=== PATIENT | female | born 1950 | race Caucasian/White ===

== ENCOUNTER 2019-12-05 13:09 | Outpatient (CLI) | payer MEDICARE, SELFPAY ==
--- NOTE | 2019-12-05 13:24 | XR_ITS ---
WS: [id number] CHEST 2 VIEWS HISTORY: SYMPTOMS OF PNEUMONIA, OTHER ABNORMALITIES OF BREATHING COMPARISON: 08/04/2012 Lungs: Clear with no abnormality. No pleural effusion or pneumothorax. Cardiac size: Normal. Mediastinum/Aorta: Mild ectasia aorta. Bones: Prior fusion hardware in the cervical region. XR/XR chest 2V* [id number] IMPRESSION: Stable chest with no acute cardiopulmonary disease.
== END 2019-12-05 13:10 | disposition home or self-care (01) ==
LOC: RADWPI 13:19
PROVIDERS: Family Provider Nurse Practitioner Family; PCP Nurse Practitioner; Visit Provider Nurse Practitioner Family
DX: I77.819 Aortic ectasia, unspecified site (principal); R06.89 Other abnormalities of breathing; Z98.1 Arthrodesis status
CPT/HCPCS: 71046

== ENCOUNTER 2025-01-06 08:45 | Emergency (ER) | payer MEDICARE, SELFPAY ==
[2025-01-06 08:50] VITALS: BP 158/73; PULSE 62; RESP 16; TEMP 36.6; O2SAT 100; BMI 21.2
--- NOTE | 2025-01-06 09:03 | XR_ITS ---
WS: [id number] Exam: [place] [id number] Date/Time of Exam: 01/06/2025 9:03 AM Reason For Exam: fall/injury There is an impacted comminuted fracture of the humeral neck with some displacement. The fracture extends into the greater tuberosity of the humeral head. No dislocation. The remainder of the humerus is intact. IMPRESSION1. Impacted comminuted displaced humeral neck fracture. Fracture lines also extend into the greater tuberosity.
--- NOTE | 2025-01-06 09:03 | CT_ITS ---
WS: [id number] CT CERVICAL TRAUMA TECHNIQUE: Noncontrast CT of the cervical spine with coronal and sagittal reformatted images. CLINICAL INFORMATION: fall COMPARISON: None. DLP: 1107.[address] scans at [facility] use at least one of these dose optimization techniques: automated exposure control; mA and/or kV adjustment per patient size (includes targeted exams where dose is matched to clinical indication); or iterative reconstruction. FINDINGS: Straightening of the normal cervical lordosis. Apparent postoperative changes ACDF C5-C7. LEFT posterior element fusion. Anterior hypertrophic changes. Pannus formation C1-2. Dens appears intact. C1 ring appears intact. No acute fractures Small calcified RIGHT thyroid nodule CT/CT cervical spin wo con* [id number] IMPRESSION: No evidence of acute fracture or dislocation.
--- NOTE | 2025-01-06 09:03 | CT_ITS ---
WS: [id number] CT THORACIC SPINE TECHNIQUE: Noncontrast CT of the thoracic spine with coronal and sagittal reformatted images. CLINICAL INFORMATION: fall/trauma COMPARISON: None. DLP: 576.[address] scans at [facility] use at least one of these dose optimization techniques: automated exposure control; mA and/or kV adjustment per patient size (includes targeted exams where dose is matched to clinical indication); or iterative reconstruction. FINDINGS: Mild thoracic curve. Mild thoracic kyphosis. Hypertrophic changes thoracic spine. No acute fractures. Moderate facet arthropathy lower thoracic spine. No acute thoracic spine findings CT/CT thoracic spin wo con* [id number] IMPRESSION: No acute fractures
--- NOTE | 2025-01-06 09:03 | CT_ITS ---
WS: [id number] CT HEAD TECHNIQUE: Noncontrast CT of the head obtained from the skullbase to the vertex. CLINICAL INFORMATION: trauma/fall COMPARISON: None. DLP: 1107.[address] scans at [facility] use at least one of these dose optimization techniques: automated exposure control; mA and/or kV adjustment per patient size (includes targeted exams where dose is matched to clinical indication); or iterative reconstruction. FINDINGS: No evidence of intracranial hemorrhage or mass effect. Ventricular system and basal cisterns are patent. Mild small vessel changes with moderate parenchymal volume loss. No extra-axial fluid collections. No evidence of mass or mass effect. Vascular calcification. Paranasal sinuses and mastoid air cells are well aerated. .Normal visualized soft tissues. CT/CT head wo con* [id number] IMPRESSION: 1. No evidence of intracranial hemorrhage or mass effect. 2. No acute intracranial findings.
--- NOTE | 2025-01-06 09:03 | XR_ITS ---
WS: [id number] Exam: XR shoulder LT min 2V* [id number] Date/Time of Exam: 01/06/2025 9:03 AM Reason For Exam: fall/trauma There is an impacted comminuted fracture of the surgical neck of the humerus. The fracture extends into the humeral head. No other fractures of the shoulder are identified. 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 XR/XR shoulder LT min 2V* [id number] IMPRESSION: 1. Impacted displaced humeral neck fracture. The fracture also appears to exten d into the lateral aspect of the humeral head.
--- NOTE | 2025-01-06 09:04 | W.ED.FALL ---
HPI - Fall General: Chief Complaint: Trauma Stated Complaint: fall Time Seen by Provider: 01/06/25 08:46 Source: patient Mode of arrival: EMS Limitations: no limitations History of Present Illness: Patient is a very nice 74-year-old female presents to ED today for evaluation following a fall. 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 Either way she states she fell backwards and landed onto her left shoulder which seems to be her main source of discomfort. She is also complaining of neck pain and does arrive via EMS in a c-collar. She states she was not head butted or trampled by the cow. She is not having any chest pain, abdominal pain, hip or pelvis pain. She is not sure if she struck her head. There was no LOC. She is not on anticoagulation. She has no open wounds or abrasions. Patient was given pain medication by EMS and currently reports that her pain is controlled. MD complaint: fall Onset (ago): hour(s) Fall from: standing Place fall occurred: other (outdoors) Loss of consciousness: None Prolonged down time: no Symptoms prior to fall: none Context: tripped/slipped (pushed) Location of injury: neck Location of injury - extremities: Left: shoulder Severity: moderate Associated symptoms-after fall: Reports neck pain; Denies abdominal pain, chest pain, headache(s), hematuria or lightheadedness Related Data Home Medications ?Medication ?Instructions ?Recorded ?Confirmed alendronate 70 mg tablet 70 mg PO Q7D 01/06/25 01/06/25 atorvastatin 40 mg tablet 40 mg PO DAILY 01/06/25 01/06/25 budesonide 3 mg 3 mg PO BID 01/06/25 01/06/25 capsule,delayed,extended release diazepam 5 mg tablet 5 mg PO BEDTIME PRN Sleep 01/06/25 01/06/25 duloxetine 30 mg capsule,delayed 30 mg PO DAILY 01/06/25 01/06/25 release empagliflozin 10 mg tablet 10 mg PO DAILY 01/06/25 01/06/25 (Jardiance) glimepiride 1 mg tablet 1 mg PO DAILY 01/06/25 01/06/25 insulin lispro 100 unit/mL See Rx Instructions .Route .COMPLEX 01/06/25 01/06/25 subcutaneous pen metformin 500 mg tablet,extended 1,000 mg PO DAILY 01/06/25 01/06/25 release 24 hr primidone 50 mg tablet 50 mg PO BID 01/06/25 01/06/25 sitagliptin phosphate 100 mg 100 mg PO DAILY 01/06/25 01/06/25 tablet (Januvia) Previous Rx's ?Medication ?Instructions ?Recorded hydrocodone 7.5 mg-acetaminophen 1 - 2 tab PO .q 4-6 #20 tabs 01/06/25 325 mg tablet Allergies Allergy/AdvReac Type Severity Reaction Status Date / Time ampicillin Allergy Unknown Verified 01/06/25 10:32 chloramphenicol Allergy Unknown Verified 01/06/25 10:31 ciprofloxacin Allergy Unknown Verified 01/06/25 10:31 gabapentin Allergy Unknown Verified 01/06/25 10:31 Penicillins Allergy Unknown Verified 01/06/25 10:31 prochlorperazine Allergy Unknown Verified 01/06/25 10:31 pseudoephedrine Allergy Unknown Verified 01/06/25 10:31 Sulfa (Sulfonamide Allergy Unknown Verified 01/06/25 10:31 Antibiotics) Review of Systems Eyes: Denies: change in vision, blurry vision, photophobia, eye discharge, floaters or seeing flashes ENMT: Denies: throat pain, odynophagia, ear or mastoid pain, ear discharge, nasal discharge, epistaxis or sinus pain Card: Denies: chest pain, palpitations, lightheadedness, syncope or pre-syncope Resp: Denies: dyspnea or pain on inspiration GI: Denies: abdominal pain : Denies: flank pain or hematuria Musc: Reports: neck pain, back pain and joint pain (L shoulder); Denies: extremity pain Neuro: Denies: headache(s), numbness in extremities, weakness in extremities, sensory changes or dizziness Physical Exam Const: COMMON NORMALS: no acute distress, average body habitus, patient oriented x3, no limitations, healthy appearing, alert and well nourished GENERAL APPEARANCE: cooperative ORIENTATION/CONSCIOUSNESS: Yes awake, Yes oriented to person, Yes oriented to place and Yes oriented to time HENMT: COMMON NORMALS: normocephalic, atraumatic and TM's normal bilaterally HEAD & SCALP: normal to inspection, normocephalic and atraumatic; no Douglas's sign, no hematoma and no raccoon eyes FACE & SINUS: normal facial exam TYMPANIC MEMBRANE: TM's normal bilaterally MOUTH: other (no intraoral injuries noted) Eye: COMMON NORMALS: Equal, round and reactive pupils present and EOMs intact bilaterally GENERAL EYE: appearance normal, both eyes and all related structures and normal light reflex PUPIL: Yes Equal, round and reactive pupils present DIRECT OPHTHALMOSCOPY: Yes normal light reflex Neck/C-Spine: GENERAL: Yes normal visual inspection CERVICAL SPINE: Yes Cervical spine tenderness and No step off deformity OTHER: c-collar present from EMS; this was not removed for ROM testing Chest: COMMONS NORMALS: normal inspection of the chest and normal palpation of entire chest wall OTHER: denies rib pain, lung sounds normal Resp: COMMON NORMALS: normal respiratory effort and clear to auscultation bilaterally AUSCULTATION: clear to auscultation bilaterally Cardio: COMMON NORMALS: regular rate and regular rhythm RATE: regular rate RHYTHM: regular rhythm GI: COMMON NORMALS: Normal to inspection, nondistended, normoactive bowel sounds present, Soft to palpation, non-tender, No hepatosplenomegaly present and no masses INSPECTION: Yes normal to inspection and No abdominal wall ecchymosis AUSCULTATION: Yes normoactive bowel sounds PALPATION: Yes Soft to palpation and Yes No hepatosplenomegaly present Back/Pelvis: COMMON NORMALS: thoracic and lumbar spine normal to inspection and straight leg raise negative bilaterally THORACIC SPINE/UPPER BACK: Yes thoracic spinal tenderness LUMBAR SPINE/LOWER BACK: No lumbar spinal tenderness and Yes straight leg raise negative bilaterally PELVIS: Yes buttocks normal and No sciatic notch tenderness SACROILIAC JOINTS: Yes SI joints normal SACRUM: no tenderness COCCYX: no tenderness Extremity: GENERAL: Yes normal exam except as noted LEFT UPPER EXTREMITY: Yes shoulder joint (deformity to L shoulder) Left shoulder joint: Yes ROM (no ROM due to pain) and Yes neurovascular exam (normal) Neuro: THAI COMA SCALE: document [facility] findings Thai coma scale eye opening: Spontaneous Thai coma scale verbal response: Orientated [place] coma scale motor response: Obey commands [place] coma scale total score: 15 COMMON NORMALS: patient oriented x3, CN's II-XII intact bilaterally, moves all extremities, no focal motor deficits and no sensory deficits noted SENSORIUM/ORIENTATION: Yes alert, Yes oriented to person, Yes oriented to place and Yes oriented to time SPEECH: speech normal GAIT: Yes Normal gait present Skin: COMMON NORMALS: no rashes or lesions noted GENERAL SKIN EXAM: no rashes or lesions noted TRAUMA: no lacerations or abrasions Course Consultations: Consultation #1: Dr. Smith-reviewed shoulder films-recommending sling and follow up in office Vital Signs: Vital signs: Vital Signs Temperature 97.9 F 01/06/25 08:50 Pulse Rate 62 01/06/25 11:24 Respiratory Rate 18 01/06/25 10:55 Blood Pressure 152/89 01/06/25 11:24 Pulse Oximetry 99 01/06/25 11:24 Oxygen Delivery Me thod Room Air 01/06/25 10:55 MDM - Fall Medical Decision Making Patient is a 74-year-old female here following a fall. Her main concern was her left shoulder. She does have an impacted/comminuted/displaced humeral neck fracture. This was discussed with Dr. Smith who recommends sling and follow-up in office. CT scans of her head, cervical spine, and thoracic spine were obtained and unremarkable. Strict return to ED precautions discussed. Patient was ambulatory here in the emergency department without difficulty or assistance. Medical Records I reviewed the patient's medical records. Lab Data I reviewed the patient's lab results. 01/06/25 09:16 01/06/25 09:16 Radiology Impressions Cervical Spine CT 01/06/25 09:03 IMPRESSION: No evidence of acute fracture or dislocation. Head CT 01/06/25 09:03 IMPRESSION: 1. No evidence of intracranial hemorrhage or mass effect. 2. No acute intracranial findings. Shoulder X-Ray 01/06/25 09:03 IMPRESSION: 1. Impacted displaced humeral neck fracture. The fracture also appears to extend into the lateral aspect of the humeral head. Thoracic Spine CT 01/06/25 09:03 IMPRESSION: No acute fractures Chest X-Ray 01/06/25 09:42 IMPRESSION: 1. No acute cardiopulmonary finding. Laboratory Results WBC 7.88 10^3/uL (3.29-11.43) 01/06/25 09:16 RBC 4.45 10^6/uL (3.85-5.65) 01/06/25 09:16 Hgb 13.70 g/dL (11.27-16.99) 01/06/25 09:16 Hct 43.1 % (36-47) 01/06/25 09:16 MCV 96.9 fl (85-98) 01/06/25 09:16 MCH 30.8 pg (27-33) 01/06/25 09:16 MCHC 31.8 g/dL (30-55) 01/06/25 09:16 RDW 14.7 % (12.1-15.1) 01/06/25 09:16 Plt Count 195 10^3/cmm (157-399) 01/06/25 09:16 MPV 10.9 fL (7.4-10.4) H 01/06/25 09:16 Neut % (Auto) 69.6 % 01/06/25 09:16 Lymph % (Auto) 18.8 % 01/06/25 09:16 Fannin % (Auto) 9.5 % 01/06/25 09:16 Eos % (Auto) 1.4 % 01/06/25 09:16 Baso % (Auto) 0.3 % 01/06/25 09:16 Neut # (Auto) 5.49 10^3/uL (1.8-7.7) 01/06/25 09:16 Lymph # (Auto) 1.5 10^3/uL (0.8-4.8) 01/06/25 09:16 Fannin # (Auto) 0.8 10^3/uL (0.2-0.9) 01/06/25 09:16 Eos # (Auto) 0.1 10^3/uL (0.0-0.8) 01/06/25 09:16 Baso # (Auto) 0.0 10^3/uL (0.0-0.1) 01/06/25 09:16 Nucleated RBC % (auto) 0 % 01/06/25 09:16 Nucleated RBCs # 0.0 /100WBC 01/06/25 09:16 Sodium 141 mmol/L (136-145) 01/06/25 09:16 Potassium 4.1 mmol/L (3.5-5.1) 01/06/25 09:16 Chloride 103 mmol/L (98-107) 01/06/25 09:16 Carbon Dioxide 23 mmol/L (22-29) 01/06/25 09:16 Anion Gap 19.1 (5-19) H 01/06/25 09:16 BUN 15 mg/dL (8-23) 01/06/25 09:16 Creatinine 0.8 mg/dL (0.5-0.9) 01/06/25 09:16 GFR Calculation Not Reportable 01/06/25 09:16 Glucose 138 mg/dL (65-115) H 01/06/25 09:16 POC Glucose 108 mg/dL (70-110) 01/06/25 10:18 Calculated Osmolality 295 mOsm/kg (285-295) 01/06/25 09:16 Calcium 9.2 mg/dL (8.5-10.5) 01/06/25 09:16 Total Bilirubin 0.5 mg/dL (0.15-1.2) 01/06/25 09:16 AST 28 U/L (0-32) 01/06/25 09:16 ALT 13 U/L (0-33) 01/06/25 09:16 Alkaline Phosphatase 97 U/L (35-105) 01/06/25 09:16 Total Protein 7.3 g/dL (6.6-8.7) 01/06/25 09:16 Albumin 4.4 g/dL (3.5-5.2) 01/06/25 09:16 Globulin 2.9 g/dL (1.3-4.6) 01/06/25 09:16 All radiology interpretation(s) finalized by discharge Discharge Plan Discharge Patient Disposition: Home Clinical Impression: Fall Qualifiers: Encounter type: initial encounter Qualified Code(s): W19.XXXA - Unspecified fall, initial encounter Fracture of neck of left humerus Qualifiers: Encounter type: initial encounter Fracture type: closed Qualified Code(s): S42.212A - Unspecified displaced fracture of surgical neck of left humerus, initial encounter for closed fracture Condition: Stable Prescriptions: New hydrocodone-acetaminophen 7.5-325 mg tablet 1 - 2 tab PO .q 4-6 Qty: 20 0RF No Action atorvastatin 40 mg tablet 40 mg PO DAILY primidone 50 mg tablet 50 mg PO BID alendronate 70 mg tablet 70 mg PO Q7D glimepiride 1 mg tablet 1 mg PO DAILY budesonide 3 mg capsule,delayed,extend.release 3 mg PO BID metformin 500 mg tablet extended release 24 hr 1,000 mg PO DAILY diazepam 5 mg tablet 5 mg PO BEDTIME PRN (Reason: Sleep) duloxetine 30 mg capsule,delayed release(DR/EC) 30 mg PO DAILY Januvia 100 mg tablet 100 mg PO DAILY Jardiance 10 mg tablet 10 mg PO DAILY insulin lispro [Humalog Pen] 100 unit/mL Insulin Pen See Rx Instructions .ROUTE .COMPLEX Rx Instructions: Per sliding scale Discharge Orders: Discharge ED (Routine); Ordered 01/06/25 Ordered By: Rachael Guerra Referrals: Nadiya Liang APN [Primary Care Provider] - Shalini Bueno FNP [Family Provider] - Patient Instructions: Fractures - Humerus, Arm Fracture in Adults (DC), Proximal Humerus Fracture (ED), Opioid Safety, Pain Management Activity Restrictions/Additional Instructions: As we discussed, you need to stay in your sling at all times apart from showering or bathing you may take your pain medications as needed for severe discomfort. Case management should reach out to you early next week to set you up with your follow-up orthopedic appointment. You need to return to the emergency department for worsening or uncontrollable pain, numbness, tingling, loss of sensation to your left upper extremity, or any other concerns you may have. Print Language: Austrian Coding Level of Care Code ED Respiratory Care Specialist for Sherry Phoenix
[2025-01-06 09:28] LABS: Basophils % 0.3 %; Eosinophils # 0.1 10^3/uL (0.0-0.8); Eosinophils % 1.4 %; Hematocrit 43.1 % (36-47); Lymphocytes # 1.5 10^3/uL (0.8-4.8); Lymphocytes % 18.8 %; Mean Corpuscular HGB Conc 31.8 g/dL (30-55); Mean Corpuscular Hemoglobin 30.8 pg (27-33); Mean Corpuscular Volume 96.9 fl (85-98); Mean Platelet Volume 10.9 fL (7.4-10.4); Monocytes # 0.8 10^3/uL (0.2-0.9); Monocytes % 9.5 %; Neutrophils # 5.49 10^3/uL (1.8-7.7); Neutrophils % 69.6 %; Nucleated Red Blood Cells % 0 %; Platelet Count 195 10^3/cmm (157-399); Red Blood Count 4.45 10^6/uL (3.85-5.65); Red Cell Distribution Width 14.7 % (12.1-15.1); White Blood Count 7.88 10^3/uL (3.29-11.43)
[2025-01-06 09:38] LABS: Alanine Aminotransferase 13 U/L (0-33); Albumin Level 4.4 g/dL (3.5-5.2); Alkaline Phosphatase 97 U/L (35-105); Anion Gap 19.1 (5-19); Aspartate Amino Transferase 28 U/L (0-32); Blood Urea Nitrogen 15 mg/dL (8-23); Calcium 9.2 mg/dL (8.5-10.5); Carbon Dioxide 23 mmol/L (22-29); Chloride 103 mmol/L (98-107); Globulin 2.9 g/dL (1.3-4.6); Glucose 138 mg/dL (65-115); Osmolality Calculated 295 mOsm/kg (285-295); Potassium 4.1 mmol/L (3.5-5.1); Sodium 141 mmol/L (136-145); Total Bilirubin 0.5 mg/dL (0.15-1.2); Total Protein 7.3 g/dL (6.6-8.7)
--- NOTE | 2025-01-06 09:42 | XR_ITS ---
WS: [email or web address] Exam: XR chest 1V portable [id number] Date/Time of Exam: 01/06/2025 9:42 AM Reason For Exam: possible admit/trauma Comparison 12/05/2019. Lungs are clear and fully expanded. Normal cardiomediastinal silhouette. No pleural effusions. Partially visualized proximal LEFT humeral fracture. XR/XR chest 1V portable [id number] IMPRESSION: 1. No acute cardiopulmonary finding.
[2025-01-06 09:49] VITALS: BP 158/73
[2025-01-06 10:21] LABS: Glucose Point of Care 108 mg/dL (70-110)
[2025-01-06 10:55] VITALS: BP 150/69; PULSE 65; RESP 18; O2SAT 100
[2025-01-06 11:24] VITALS: BP 152/89; PULSE 62; O2SAT 99
--- NOTE | 2025-01-06 13:45 | DCPLANNER ---
messaged ortho for er f/u
== END 2025-01-06 11:26 | disposition home or self-care (01) ==
PROVIDERS: Emergency Provider Physician Assistant; Family Provider Nurse Practitioner Family; PCP Nurse Practitioner
DX: S42.212A Unspecified displaced fracture of surgical neck of left humerus, initial encounter for closed fracture (principal); Z79.84 Long term (current) use of oral hypoglycemic drugs; W19.XXXA Unspecified fall, initial encounter; Z79.4 Long term (current) use of insulin
CPT/HCPCS: 36415; 36416; 70450; 71045; 72125; 72128; 73030; 73060; 80053; 82962; 85025; 99284

== ENCOUNTER → 2025-01-10 15:06 | Outpatient (BNVA) | payer MEDICARE, SELFPAY | PROVIDERS: Family Provider Nurse Practitioner Family; PCP Nurse Practitioner; Visit Provider Orthopaedic Surgery | DX: S42.212A Unspecified displaced fracture of surgical neck of left humerus, initial encounter for closed fracture (principal); W19.XXXA Unspecified fall, initial encounter | CPT/HCPCS: 73030; 99203 ==